=== PATIENT | female | born 1995 | race African-American/Black ===

== ENCOUNTER 2016-11-02 20:14 | Emergency (ER) | payer OTHER ==
[2016-11-02] MEDS ORDERED: LIDOCAINE 1%-EPI 1:100000 20 ML MDV SUBQ STA (21:04)
--- NOTE | 2016-11-02 21:06 | ED Physician Documentation ---
PD HPI FEMALE - Stated complaint Stated Complaint: FEMALE - Chief complaint Chief Complaint: Abd Pain - History obtained from History obtained from: Patient, Family - History of Present Illness Timing - onset: Other (For the last day and a half she has had a few episodes of diarrhea and complains of a cyst over the right inguinal area and burning lateral to both labia and tingling especially when she sits, but it gets better after she wipes herself. She also has rectal pain. There is no discharge or bleeding. No fevers. She was briefly nauseous but now that is gone. No abdominal pain but there is some suprapubic pressure.) Review of Systems Ten Systems: 10 systems reviewed and negative Constitutional: denies: Fever, Chills Cardiac: denies: Chest pain / pressure, Palpitations Respiratory: denies: Dyspnea, Cough GI: reports: Nausea, Diarrhea. denies: Vomiting, Constipation, Bloody / black stool PD PAST MEDICAL HISTORY - Past Surgical History Past Surgical History: Yes HEENT: Other - Present Medications Home Medications: Ambulatory Orders Medication Instructions Recorded Confirmed Esomeprazole Magnesium [Nexium] 20 mg PO DAILY 03/07/16 03/14/16 Pnv95/Ferrous Fumarate/FA 1 each PO DAILY 03/07/16 03/14/16 [ Formula] Clindamycin [Cleocin] 300 mg PO Q6H 7 Days 11/02/16 - Allergies Allergies/Adverse Reactions: Allergies Allergy/AdvReac Type Severity Reaction Status Date / Time No Known Drug Allergies Allergy Verified 11/02/16 20:37 - Social History Does the pt smoke?: No Smoking Status: Never smoker Does the pt drink ETOH?: No Does the pt have substance abuse?: No - Immunizations Immunizations are current?: Yes - POLST Patient has POLST: No PD ED PE NORMAL - Vitals Vital signs reviewed: Yes - General General: Alert and oriented X 3, No acute distress - Abdomen Abdomen: Soft, Non tender - Female Female : Custom Miller present (Siddharth TOMAS), Other (1cm abscess R ingiunal area. Some whitish vag dischg, no CMT or adnexal TTP.) - Neuro Neuro: Alert and oriented X 3, Normal speech - Psych Psych: Normal mood, Normal affect Results - Vitals Vitals: Vital Signs - 24 hr 11/02/16 20:34 Temperature 36.4 C L Heart Rate 93 Respiratory 18 Rate Blood Pressure 130/85 H O2 Saturation 100 Oxygen O2 Source Room air - Labs Labs: Microbiology 11/02/16 21:40 Wet Prep - Final Genital - Vaginal 11/02/16 21:40 TRESSA Preparation - Final Fluid - Vaginal Laboratory Tests 11/02/16 21:20 Urine Color YELLOW Urine Clarity CLOUDY Urine pH 5.5 Ur Specific [place] >=1.030 H Urine Protein TRACE Urine Glucose (UA) NEGATIVE Urine Ketones NEGATIVE Urine Occult Blood MODERATE H Urine Nitrite NEGATIVE Urine Bilirubin NEGATIVE Urine Urobilinogen 0.2 (NORMAL) Ur Leukocyte Esterase NEGATIVE Urine RBC 11-25 H Urine WBC >25 H Ur Squamous Epith Cells MANY Squamous H Urine Bacteria Moderate H Ur Microscopic Review INDICATED Urine Culture Comments NOT INDICATED Urine HCG, Qual NEGATIVE Procedures - Abscess I&D (location) R inguinal Preparation: Alcohol, Lidocaine 1% Incision: Incised with scalpel, Purulent drainage, Loculations broken. No: Packed (too small) Other: Pt tolerated well PD MEDICAL DECISION MAKING - ED course ED course: She has 2 issues, small inguinal abscess and also bacterial vaginosis, seems reasonable to treat with clindamycin since this will treat both. Departure - Departure Disposition: 01 Home, Self Care Clinical Impression: Inguinal abscess, Bacterial vaginosis Condition: Good Record reviewed to determine appropriate education?: Yes Instructions: ED Vaginosis Bacterial, ED Abscess IandD Prescriptions: Clindamycin [Cleocin] 300 mg PO Q6H 7 Days Comments: Call your doctor to arrange a follow-up appointment, make the next available appointment. In the interim, return anytime if worse or if new symptoms develop. Your blood pressure was elevated today on check into the emergency department. This does not mean that you have hypertension, it is a common phenomenon to come to the emergency department and have elevated blood pressure. I recommend that she see her primary care physician within the week to have it rechecked when you are feeling better.
[2016-11-02] MEDS ORDERED: LIDOCAINE 1% 2 ML VIAL ONE (21:27)
[2016-11-02 21:28] LABS: BILIRUBIN,URINE NEGATIVE (NEGATIVE); PH,URINE 5.5 PH (5.0-7.5)
[2016-11-02 21:32] LABS: HCG UR QUAL NEGATIVE; UA w/ MICROSCOPIC CHARGE YES
[2016-11-02] MEDS ORDERED: LIDOCAINE 2% 10 ML MDV ONE (21:33)
[2016-11-02 21:50] LABS: UR CULTURE IF IND NOT INDICATED; WBC,URINE >25 /HPF (0-5)
[2016-11-02] MEDS ORDERED: ONDANSETRON 4 MG/2 ML VIAL ONE (21:51)
[2016-11-02] MEDS ORDERED: HYDROmorphone 1 MG/ML SYRINGE IM STA (21:57)
[2016-11-02] MEDS ORDERED: CLINDAMYCIN 150 MG CAPSULE PO STA (21:58)
[2016-11-02] MEDS ORDERED: HYDROcod/ACET 5/325 Prepack 6 PO STA (21:59)
[2016-11-02] MEDS ORDERED: HYDROmorphone 1 MG/ML SYRINGE ONE (22:17)
[2016-11-02] MEDS ORDERED: HYDROcod/ACET 5/325 Prepack 6 PO ONE (22:17)
[2016-11-02] MEDS ORDERED: CLINDAMYCIN 150 MG CAPSULE PO ONE (22:18)
[2016-11-02 22:42] VITALS: BP 115/78
== END 2016-11-02 22:44 | disposition home or self-care (01) ==
LOC: ED 20:14
DX: L02.214 Cutaneous abscess of groin (principal); N76.0 Acute vaginitis; B96.89 Other specified bacterial agents as the cause of diseases classified elsewhere; R03.0 Elevated blood-pressure reading, without diagnosis of hypertension
CPT/HCPCS: 10060; 81001; 81025; 87210; 87220; 87491; 87591; 96372; 99283; A9270; J1170; 81003; 87086

== ENCOUNTER 2016-11-24 18:20 | Emergency (ER) | payer OTHER ==
[2016-11-24 19:24] LABS: BILIRUBIN,URINE NEGATIVE (NEGATIVE)
[2016-11-24 19:26] LABS: HCG UR QUAL NEGATIVE; UA w/ MICROSCOPIC CHARGE YES
[2016-11-24 19:37] LABS: UR CULTURE IF IND NOT INDICATED
[2016-11-24 21:53] LABS: BASOPHILS % (AUTO) 0.5 %; EOSINOPHILS # (AUTO) 0.1 10^3/uL (0.0-0.7); EOSINOPHILS % (AUTO) 0.9 %; HCT - HEMATOCRIT 38.5 % (37.0-47.0); HGB - HEMOGLOBIN 12.2 g/dL (12.0-16.0); LYMPHOCYTES # (AUTO) 3.2 10^3/uL (1.5-3.5); LYMPHOCYTES % (AUTO) 33.4 %; MEAN CORPUSCULAR HEMOGLOBIN 24.7 pg (27.0-31.0); MEAN CORPUSCULAR HGB CONC 31.7 g/dL (32.0-36.0); MEAN CORPUSCULAR VOLUME 77.7 fL (81.0-99.0); MEAN PLATELET VOLUME 7.7 fL (7.9-10.8); MONOCYTES # (AUTO) 0.9 10^3/uL (0.0-1.0); MONOCYTES % (AUTO) 9.5 %; NEUTROPHILS # (AUTO) 5.4 10^3/uL (1.5-6.6); NEUTROPHILS % (AUTO) 55.7 %; RED BLOOD COUNT 4.96 10^6/uL (4.20-5.40); RED CELL DISTRIBUTION WIDTH 17.4 % (12.0-15.0); UNCORRECTED WHITE BLOOD COUNT 9.7 x10^3/uL; WHITE BLOOD COUNT 9.7 x10^3/uL (4.8-10.8)
[2016-11-24 22:03] LABS: ALBUMIN/GLOBULIN RATIO 1.2 (1.0-2.2); BILIRUBIN,TOTAL 0.6 mg/dL (0.2-1.0); CALCIUM 9.2 mg/dL (8.5-10.3); CREATININE 0.7 mg/dL (0.4-1.0); POTASSIUM 3.6 mmol/L (3.5-5.0)
--- NOTE | 2016-11-24 22:27 | ED Physician Documentation ---
History of Present Illness - Stated complaint Stated Complaint: FEMALE - Chief complaint Chief Complaint: Abd Pain - History obtained from History obtained from: Patient, Family - History of Present Illness Timing: How many weeks ago (1) - Additonal information Additional information: Patient is a 21 year old female with no significant past medical history who is presenting to the emergency department for intermittent abdominal pain and dizziness. Patient states that the abdominal pain will come and go. Patient states that it is sharp in nature, and then will go away on its own. patient states that she does have an issue with constipation, and only goes about once a week. Patient has also had increased urinary frequency, but denies vaginal bleeding or vaginal discharge. Patient states that the dizziness will come and go on its own. patient states that it is somewhat positional in nature but that it does come and go on its own. Review of Systems Constitutional: denies: Fever, Chills Eyes: denies: Loss of vision, Decreased vision, Photophobia Ears: denies: Ear pain, Drainage/discharge Nose: denies: Rhinorrhea / runny nose, Congestion, Epistaxis Throat: denies: Sore throat Cardiac: reports: Other (dizzy). denies: Chest pain / pressure, Palpitations Respiratory: denies: Cough, Wheezing GI: reports: Abdominal Pain, Constipation. denies: Nausea, Vomiting, Diarrhea : reports: Frequency. 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 HEENT: Other - Present Medications Home Medications: Ambulatory Orders Medication Instructions Recorded Confirmed Sulfamethox/Trimeth 800/160 1 each PO BID #10 tablet 11/24/16 [Bactrim Ds 800/160] - Allergies Allergies/Adverse Reactions: Allergies Allergy/AdvReac Type Severity Reaction Status Date / Time No Known Drug Allergies Allergy Verified 11/24/16 19:01 - Social History Does the pt smoke?: No Smoking Status: Never smoker Does the pt drink ETOH?: No Does the pt have substance abuse?: No - Immunizations Immunizations are current?: Yes - POLST Patient has POLST: No PD ED PE NORMAL - Vitals Vital signs reviewed: Yes - General General: Alert and oriented X 3, No acute distress - HEENT HEENT: Atraumatic, PERRL, Moist mucous membranes, Pharynx benign - Neck Neck: Supple, no meningeal sign, No JVD - Cardiac Cardiac: RRR, No murmur - Respiratory Respiratory: No respiratory distress, Clear bilaterally - Abdomen Abdomen: Soft, Non tender, Non distended, Other (obese) - Derm Derm: Normal color, Warm and dry, No rash - Extremities Extremities: No deformity, No tenderness to palpate, No edema, No calf tenderness / cord - Neuro Neuro: Alert and oriented X 3, 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, No motor deficit, No sensory deficit, Normal speech - Psych Psych: Normal mood, Normal affect Results - Vitals Vitals: Vital Signs - 24 hr 11/24/16 18:50 Temperature 36.2 C L Heart Rate 75 Respiratory 20 Rate Blood Pressure 131/90 H O2 Saturation 99 Oxygen O2 Source Room air - EKG (time done) 2145 Rate: Rate (enter#) (66) Rhythm: NSR Faith: Normal Intervals: Normal IA QRS: Normal Ischemia: Normal ST segments Other comments: Other comments Compare to prior EKG: Old EKG unavailable - Labs Labs: Laboratory Tests 11/24/16 11/24/16 19:00 21:49 Sodium 137 Potassium 3.6 Chloride 105 Carbon Dioxide 24 Anion Gap 8.0 BUN 12 Creatinine 0.7 Estimated GFR (MDRD) 126 Glucose 89 Calcium 9.2 Total Bilirubin 0.6 AST 20 ALT 19 Alkaline Phosphatase 68 Total Protein 8.0 Albumin 4.4 Globulin 3.6 Albumin/Globulin Ratio 1.2 Lipase 21 L Urine Color YELLOW Urine Clarity HAZY Urine pH 6.0 Ur Specific [place] >=1.030 H Urine Protein NEGATIVE Urine Glucose (UA) NEGATIVE Urine Ketones NEGATIVE Urine Occult Blood MODERATE H Urine Nitrite NEGATIVE Urine Bilirubin NEGATIVE Urine Urobilinogen 0.2 (NORMAL) Ur Leukocyte Esterase NEGATIVE Urine RBC 0-5 Urine WBC 4-5 Ur Squamous Epith Cells MANY Squamous H Urine Bacteria Few Urine Mucus Moderate Strands Ur Microscopic Review INDICATED Urine Culture Comments NOT INDICATED Urine HCG, Qual NEGATIVE PD MEDICAL DECISION MAKING - ED course Complexity details: reviewed old records, reviewed results, re-evaluated patient , considered differential, d/w patient, d/w family ED course: Patient was seen and examined at bedside. Patient was well appearing with normal vital signs. patient was asymptomatic at the time of evaluation. labs were drawn and urine was collected. when patient's labs came back they were significant for uti, but patient's diagnostics including ekg. Patient abdomen was soft and benign. Ptaient required no further work up and was stable for discharge with outpatient follow up. Departure - Departure Disposition: 01 Home, Self Care Clinical Impression: Urinary tract infection Condition: Good Instructions: ED UTI Cystitis Female Follow-Up: primary,care provider [Other] - As Needed Prescriptions: Sulfamethox/Trimeth 800/160 [Bactrim Ds 800/160] 1 each PO BID #10 tablet Comments: Your diagnostics today were significant for a urinary tract infection, otherwise they were within normal limits. You will be given your first dose of antibiotics tonight and you will need to take your entire course of antibiotics. You should take them twice a day with yogurt or probiotics. it is also important that you drink more water as dehydration could be exacerbating the uti symptoms, constipation and dizziness. Forms: Activity restrictions
[2016-11-24] MEDS ORDERED: SULFAMETH/TRIMETH DS 800/160 MG TABLET PO STA (22:29)
[2016-11-24] MEDS ORDERED: SULFAMETH/TRIMETH DS 800/160 MG TABLET PO ONE (22:36)
[2016-11-24 22:38] VITALS: BP 133/78
== END 2016-11-24 22:43 | disposition home or self-care (01) ==
LOC: ED 18:20
DX: N39.0 Urinary tract infection, site not specified (principal)
CPT/HCPCS: 36415; 80053; 81001; 81025; 83690; 85025; 93005; 99283; 99284; A9270; 81003; 87086